=== PATIENT | female | born 1975 | race Caucasian/White ===

== ENCOUNTER 2019-12-05 18:58 | Emergency (ER) | payer SELFPAY ==
[~2019-12-05] VITALS: Ht 167.6 cm; Wt 100.0 kg
[2019-12-06 06:20] VITALS: BP 131/74
== END 2019-12-06 12:05 | disposition home or self-care (01) ==
LOC: ER 18:58
DX: S93.402A Sprain of unspecified ligament of left ankle, initial encounter (principal); Z59.0 Homelessness; X58.XXXA Exposure to other specified factors, initial encounter; Y93.89 Activity, other specified; Y92.89 Other specified places as the place of occurrence of the external cause; Y99.8 Other external cause status
CPT/HCPCS: 73610; 99283; Z7610